=== PATIENT | male | born 1980 | race Caucasian/White ===

== ENCOUNTER 2019-06-24 10:02 | Inpatient (IN) | payer OTHER ==
--- NOTE | 2019-06-24 10:45 | RAD ---
Exam: Left femur 2 views: HISTORY: Pain following an injury while running. Displaced fracture through the base of the femoral neck with foreshortening and varus deformity. No d islocation. The remainder of the femur is intact. IMPRESSION: Displaced fracture through the base of the left femoral neck with foreshortening and varus deformity.
--- NOTE | 2019-06-24 10:46 | RAD ---
Exam: Left hip 2 views: HISTORY: Pain following injury while running FINDINGS: Displaced irregular fracture through the base of the femoral neck with foreshortening and varus defor mity. No dislocation. IMPRESSION: Displaced and foreshortened fracture of the base of the left femoral neck.
[2019-06-24] MEDS ORDERED: Ondansetron PF 4 MG/2 ML Vial ONE ×2 (11:03→12:20)
[2019-06-24] MEDS ORDERED: Morphine 4 MG/ML VIAL ONE (11:03)
[2019-06-24] MEDS ORDERED: Promethazine HCl 25 MG/ML VIAL IM PRN ×2 (11:29→18:12)
[2019-06-24] MEDS ORDERED: Morphine 4 MG/ML VIAL SLOW IVP PRN (11:29)
[2019-06-24] MEDS ORDERED: Ondansetron PF 4 MG/2 ML Vial IVP PRN (11:29)
[2019-06-24] MEDS ORDERED: hydrALAZINE 20 MG/ML VIAL SLOW IVP PRN (11:29)
[2019-06-24] MEDS ORDERED: traMADol HCl 50 MG TAB PO PRN (11:37)
[2019-06-24 11:51] LABS: #Basophils 0.1 thou/uL (0.0-0.2); #Eosinphils 0.1 thou/uL (0.0-0.7); #Lymphocytes 1.2 thou/uL (1.20-3.40); #Monocytes 0.7 thou/uL (0.11-0.59); %Basophils 0.4 % (0.0-1.0); %Eosinophils 0.8 % (0.0-10.0); %Lymphocytes 9.4 % (21.0-51.0); %Monocytes 5.2 % (0.0-10.0); %Neutrophils 84.2 % (42.0-75.0); Hemoglobin 14.7 g/dL (14.0-18.0); Mean Corpuscular HGB CONC 34.2 g/dL (32.0-36.0); Mean Corpuscular Hemoglobin 30.5 pg (27.0-31.0); Mean Corpuscular Volume 89.1 fL (78.0-98.0); Mean Platelet Volume 6.6 fL (7.4-10.4); Platelet Count 315 thou/uL (130-400); RBC Distribution Width 11.6 % (11.5-14.5); Red Blood Cell (RBC) Count 4.82 mill/uL (4.70-6.10); White Blood Cell (WBC) Count 13.1 thou/uL (4.8-10.8)
[2019-06-24 11:54] LABS: Prothrombin Time 13.6 SEC (12.0-14.7)
[2019-06-24 12:08] LABS: Magnesium 2.1 mg/dL (1.6-2.6); Phosphorus 2.8 mg/dL (2.3-4.7)
[2019-06-24 12:08] LABS: ALT (SGPT) 17 U/L (8-55); AST (SGOT) 23 U/L (5-34); Albumin 4.6 g/dL (3.5-5.0); Alkaline Phosphatase 114 U/L (40-150); Anion Gap 16 mmol/L (10-20); BUN (Urea Nitrogen) 18 mg/dL (8.9-20.6); Bilirubin, Total 0.5 mg/dL (0.2-1.2); Calc. Creatinine Clearance 0 mL/min (70-130); Calcium 10.2 mg/dL (7.8-10.44); Carbon Dioxide 24 mmol/L (22-29); Chloride 105 mmol/L (98-107); Estimated GFR-MDRD 80; Globulin 3.1 g/dL (2.4-3.5); Glucose 127 mg/dL (70-105); Potassium 4.7 mmol/L (3.5-5.1); Protein, Total 7.7 g/dL (6.0-8.3); Sodium 140 mmol/L (136-145)
[2019-06-24] MEDS ORDERED: Ketorolac Tromethamine 30 MG/ML VIAL ONE ×2 (12:12→12:20)
[2019-06-24] MEDS ORDERED: PROPOFOL 200 MG/20 ML VIAL ONE (12:20)
[2019-06-24] MEDS ORDERED: Lidocaine 1% PF 5 ML VIAL ONE (12:20)
--- NOTE | 2019-06-24 13:09 | RAD ---
CHEST 1 VIEW: Date: 06/24/19 HISTORY: Hip fracture. Preoperative exam. FINDINGS: Normal cardiac silhouette. Pulmonary vessels and hilum are normal. Costophrenic angles are clear. No masses or consolidation. There is elevation of left hemidiaphragm. No pneumothorax or osseous abnorma lities. IMPRESSION: No acute cardiopulmonary process. POS: TPC
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
[2019-06-24 14:39] VITALS: BMI 31.6
[2019-06-24] MEDS ORDERED: Fentanyl 100 MCG/2 ML VIAL ONE ×4 (15:51→19:24)
[2019-06-24] MEDS ORDERED: Midazolam HCl 2 mg/2 ml Vial ONE (15:51)
[2019-06-24] MEDS: Gabapentin 300 MG CAP PO SCH ×2 (16:01→20:14)
[2019-06-24] MEDS: Ibuprofen 800 MG TAB PO SCH ×2 (16:01→22:24)
[2019-06-24] MEDS: Sodium Chloride 0.9% 1,000 ML IV SCH ×2 (16:01→20:14)
--- NOTE | 2019-06-24 17:57 | RAD ---
INTRAOPERATIVE FLUOROSCOPY. 06/24/19 HISTORY: ORIF. Fracture. FINDINGS: There is evidence of a single screw and gamma nail traversing a left hip fracture. Alignment is near anatomic. EXPOSURE: 87.7 seconds. 8.48 mGy. IMPRESSION: Intraoperative fluoroscopy as above. POS: PPP
[2019-06-24] MEDS ORDERED: Meperidine HCl/PF 25 MG/ML VIAL ONE (18:10)
[2019-06-24] MEDS ORDERED: Meperidine HCl/PF 25 MG/ML VIAL SLOW IVP PRN (18:12)
[2019-06-24] MEDS ORDERED: Promethazine HCl 25 MG/ML VIAL SLOW IVP PRN (18:12)
[2019-06-24] MEDS ORDERED: Ondansetron HCl/PF 4 MG/2 ML Vial IVP PRN (18:12)
[2019-06-24] MEDS: Acetaminophen 1,000 MG in Premix Bag 1 BAG IVPB SCH ×2 (18:54→23:34)
[2019-06-24] MEDS: Senokot S 8.6-50 MG TAB PO SCH (20:14)
[2019-06-24] MEDS ORDERED: Enoxaparin Sodium 30 MG/0.3 ML SYRINGE SC SCH (21:00)
[2019-06-24] MEDS ORDERED: Famotidine/PF 20 mg/2ml Vial SLOW IVP SCH (21:00)
[2019-06-24] MEDS: Famotidine 20 MG TAB PO SCH (21:30)
[2019-06-24] MEDS: Cyclobenzaprine 10 MG TAB PO PRN (22:24)
--- NOTE | 2019-06-24 22:25 | PRG ---
DATE OF SERVICE: 06/24/2019 SUBJECTIVE: This is a 38-year-old gentleman, who remains on the surgical floor. The patient had a mechanical fall while jogging and sustained a left femoral neck fracture. The patient is postop day 0, status post repair of left femoral neck fracture. The patient is awake, alert, sitting up in bed. Denies any pain at this time. The patient is tolerating a diet at this time. The patient with 2 usp guards at bedside. The patient voices no complaints at this time. OBJECTIVE: VITAL SIGNS: Stable, the patient remains afebrile. RESPIRATORY: Equal chest rise and fall, no respiratory distress. EXTREMITIES: Moves all extremities. Positive distal pulses 2+, SCDs in place. IMPRESSION: 1. Status post mechanical fall while jogging. 2. Postop day #0 repair of left femoral neck fracture. PLAN: Continue supportive care and pain regimen. Increase the patient's diet as tolerated. Discontinue maintenance fluids as the patient is tolerating a diet. We will have Physical and Occupational Therapy work with the patient. The plan was discussed with the patient and guards, who agrees. Job ID: [id number]
--- NOTE | 2019-06-24 22:28 | CON ---
DATE OF CONSULTATION: 06/24/2019 REQUESTING PHYSICIAN: Edward Delgado DO CONSULTING PHYSICIAN: Junior Pena MD REASON FOR CONSULTATION: Left hip basicervical femoral neck fracture. BRIEF CLINICAL HISTORY: Vladislav is a 38-year-old white male, who was admitted to [facility] by the trauma team after he was found to have a left basicervical femoral neck fracture. Our service was consulted for management of this problem. The patient has been having pain in the left hip for the last month or so since he initiated a jogging program. He has had progressive discomfort, which got better when he took a break from jogging and running. This was a process that replaced itself on at least 2 occasions over the subsequent month and a half. However, this morning when he was running, he felt intense pain in the left hip, it gave way, he fell suggesting that the fracture occurred prior to fall. He has been admitted by the trauma team and we have been consulted for evaluation. Plain radiographs demonstrated a basicervical femoral neck fracture. PAST MEDICAL HISTORY: Negative. PAST SURGICAL HISTORY: Negative. SOCIAL HISTORY: He is incarcerated and has not used tobacco, but has in the past. PHYSICAL EXAMINATION: GENERAL: This is a well-nourished, well-developed white male, appearing his stated age, in no apparent distress or discomfort. EXTREMITIES: Visual inspection of both lower extremities demonstrates him to have a little shortening of the left lower extremity relative to the right. He is neurovascularly intact with good digital excursion and sensation in the left lower extremity. Dorsiflexion, inversion, eversion all appear to be 5/5. Little bit of rotation is appreciated, but again there is no gross deformity and he does not keep the leg flexed. IMAGING STUDIES: Two views of left hip demonstrate a basicervical varus angulated displaced femoral neck fracture. IMPRESSION: Left hip basicervical femoral neck fracture. PLAN: 1. The risks, benefits, options, alternatives, and rationale for proceeding with closed versus open reduction with internal fixation have been explained in great detail to the patient, he is ready to proceed. All questions were answered. No guarantee of outcome stated or implied. 2. Please see orders. Job ID: [id number]
[2019-06-24] MEDS: traMADol HCl 50 MG TAB PO PRN (22:30)
[2019-06-24] MEDS: CEFAZOLIN 2 GM in Premix Bag 1 BAG IVPB SCH (23:34)
[2019-06-25] MEDS ORDERED: Sodium Chloride 0.9% 500 ML IV SCH ×2 (04:15→04:30)
[2019-06-25] MEDS: traMADol HCl 50 MG TAB PO PRN (04:23)
[2019-06-25 05:37] LABS: #Eosinphils 0.2 thou/uL (0.0-0.7); #Lymphocytes 3.1 thou/uL (1.20-3.40); #Monocytes 0.8 thou/uL (0.11-0.59); #Neutrophils 4.8 thou/uL (1.40-6.50); %Basophils 0.4 % (0.0-1.0); %Eosinophils 1.9 % (0.0-10.0); %Lymphocytes 35.1 % (21.0-51.0); %Monocytes 8.8 % (0.0-10.0); %Neutrophils 53.8 % (42.0-75.0); Hemoglobin 12.1 g/dL (14.0-18.0); Mean Corpuscular HGB CONC 33.2 g/dL (32.0-36.0); Mean Corpuscular Hemoglobin 30.2 pg (27.0-31.0); Mean Corpuscular Volume 90.8 fL (78.0-98.0); Mean Platelet Volume 6.6 fL (7.4-10.4); Platelet Count 283 thou/uL (130-400); RBC Distribution Width 11.8 % (11.5-14.5); Red Blood Cell (RBC) Count 4.02 mill/uL (4.70-6.10); White Blood Cell (WBC) Count 8.8 thou/uL (4.8-10.8)
[2019-06-25] MEDS: Acetaminophen 1,000 MG in Premix Bag 1 BAG IVPB SCH (05:47)
[2019-06-25] MEDS: Ibuprofen 800 MG TAB PO SCH ×3 (05:47→21:01)
[2019-06-25 05:58] LABS: Anion Gap 9 mmol/L (10-20); BUN (Urea Nitrogen) 15 mg/dL (8.9-20.6); Calc. Creatinine Clearance 183 mL/min (70-130); Calcium 8.3 mg/dL (7.8-10.44); Carbon Dioxide 26 mmol/L (22-29); Chloride 107 mmol/L (98-107); Estimated GFR-MDRD Greater than 90; Glucose 112 mg/dL (70-105); Magnesium 1.8 mg/dL (1.6-2.6); Phosphorus 3.5 mg/dL (2.3-4.7); Potassium 3.8 mmol/L (3.5-5.1); Sodium 138 mmol/L (136-145)
[2019-06-25] MEDS ORDERED: Magnesium 2 GM/50 ML 2 GM in Premix Bag 1 BAG IVPB SCH (07:15)
[2019-06-25] MEDS ORDERED: Potassium Phosphate 15 MMOL in Sodium Chloride 0.9% 250 ML 250 ML IVPB SCH (07:15)
[2019-06-25] MEDS: CEFAZOLIN 2 GM in Premix Bag 1 BAG IVPB SCH ×2 (07:58→17:46)
[2019-06-25] MEDS: Senokot S 8.6-50 MG TAB PO SCH ×2 (08:01→20:51)
[2019-06-25] MEDS: Aspirin 81 mg Enteric Coated Tablet PO SCH ×2 (08:01→20:51)
[2019-06-25] MEDS: Gabapentin 300 MG CAP PO SCH ×3 (08:01→20:51)
[2019-06-25] MEDS: Polyethylene Glycol 3350 17 GM Packet PO SCH (08:02)
[2019-06-25] MEDS: Famotidine 20 MG TAB PO SCH ×2 (08:30→20:52)
[2019-06-25] MEDS: Acetaminophen 500 MG TAB PO SCH ×3 (08:30→20:51)
[2019-06-25] MEDS: traMADol HCl 50 MG TAB PO SCH ×3 (08:30→20:51)
[2019-06-25] MEDS ORDERED: Sodium Chloride 0.9% 1,000 ML IV SCH (09:45)
[2019-06-25] MEDS ORDERED: Hydrocortisone Sod Succ/PF 100 mg/2 ml Vial IVP SCH (09:45)
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
[2019-06-25] MEDS: Hydrocortisone Sod Succ/PF 100 mg/2 ml Vial IVP SCH ×2 (17:57→21:01)
--- NOTE | 2019-06-25 20:53 | PRG ---
DATE OF SERVICE: 06/25/2019 SUBJECTIVE: The patient remains on the surgical floor, awake, alert, lying in hospital bed. The patient is postop day #1 status post fixation of left femoral neck fracture. The patient reports that his pain is well controlled at this time. The patient states he was able to walk with Physical Therapy using a walker and 50% weightbearing on his left lower extremity. The patient continues to tolerate a diet. The patient voices no complaints at this time. The patient is with intermediate guards at bedside. OBJECTIVE: VITAL SIGNS: Blood pressure 114/72, temperature 98.2, pulse 67, respirations 16, SpO2 of 95% on room air. GENERAL: Well-appearing, middle-aged male, sitting up in bed, in no acute distress. PULMONARY: Equal chest rise and fall of chest. No respiratory distress. EXTREMITIES: A 2+ pulses in all extremities. Left hip dressing is clean, dry, and intact. NEUROLOGIC: Motor and sensation intact in all extremities. GCS is 15. ASSESSMENT: 1. Status post mechanical fall. 2. Left femoral neck fracture, status post repair. 3. Hypokalemia, hypophosphatemia, and hypomagnesemia. 4. Acute adrenal insufficiency. 5. Acute traumatic pain, secondary to left femoral neck fracture. PLAN: Continue supportive care and scheduled pain regimen. Continue hydrocortisone for adrenal insufficiency. We will continue to have Physical and Occupational work with the patient. We will continue mechanical and chemical DVT prophylaxis. The plan has been discussed with the patient and guards, who agreed. Job ID: [id number]
[2019-06-26] MEDS: traMADol HCl 50 MG TAB PO SCH ×4 (01:20→21:04)
[2019-06-26] MEDS: Acetaminophen 500 MG TAB PO SCH ×4 (01:20→21:05)
[2019-06-26] MEDS: Ibuprofen 800 MG TAB PO SCH ×3 (05:16→21:05)
[2019-06-26] MEDS: Hydrocortisone Sod Succ/PF 100 mg/2 ml Vial IVP SCH ×2 (05:16→11:47)
[2019-06-26 05:28] LABS: #Lymphocytes 2.2 thou/uL (1.20-3.40); #Monocytes 0.9 thou/uL (0.11-0.59); %Basophils 0.5 % (0.0-1.0); %Eosinophils 0.4 % (0.0-10.0); %Lymphocytes 23.7 % (21.0-51.0); %Monocytes 9.6 % (0.0-10.0); %Neutrophils 65.8 % (42.0-75.0); Anion Gap 9 mmol/L (10-20); BUN (Urea Nitrogen) 10 mg/dL (8.9-20.6); Calc. Creatinine Clearance 235 mL/min (70-130); Calcium 8.5 mg/dL (7.8-10.44); Carbon Dioxide 23 mmol/L (22-29); Chloride 110 mmol/L (98-107); Estimated GFR-MDRD Greater than 90; Glucose 96 mg/dL (70-105); Hemoglobin 11.8 g/dL (14.0-18.0); Magnesium 2.1 mg/dL (1.6-2.6); Mean Corpuscular Hemoglobin 30.4 pg (27.0-31.0); Mean Corpuscular Volume 92.2 fL (78.0-98.0); Mean Platelet Volume 6.9 fL (7.4-10.4); Phosphorus 2.7 mg/dL (2.3-4.7); Platelet Count 257 thou/uL (130-400); Potassium 4.4 mmol/L (3.5-5.1); RBC Distribution Width 11.9 % (11.5-14.5); Red Blood Cell (RBC) Count 3.88 mill/uL (4.70-6.10); Sodium 138 mmol/L (136-145); White Blood Cell (WBC) Count 9.2 thou/uL (4.8-10.8)
[2019-06-26] MEDS ORDERED: PHOS-NAK 1 PKT PACK PO SCH (07:45)
[2019-06-26] MEDS: Gabapentin 300 MG CAP PO SCH ×3 (08:15→21:05)
[2019-06-26] MEDS: Senokot S 8.6-50 MG TAB PO SCH ×2 (08:16→21:05)
[2019-06-26] MEDS: Famotidine 20 MG TAB PO SCH ×2 (08:17→21:05)
[2019-06-26] MEDS: Aspirin 81 mg Enteric Coated Tablet PO SCH ×2 (08:17→21:05)
[2019-06-26] MEDS: Polyethylene Glycol 3350 17 GM Packet PO SCH (08:21)
[2019-06-26] MEDS ORDERED: Polyethylene Glycol 3350 17 GM Packet PO SCH (09:00)
--- NOTE | 2019-06-26 14:15 | PRG ---
DATE OF SERVICE: 06/26/2019 SUBJECTIVE: The patient was seen this morning. He is postoperative day 2 after fixation of the left femoral neck fracture. The patient had episodes of hypotension yesterday, which was due to dehydration and acute adrenal insufficiency. Over the past 24 hours, he has been hemodynamically stable. He has worked with Physical and Occupational Therapy. He is tolerating a regular diet and pain is well controlled. OBJECTIVE: VITAL SIGNS: Temperature 98.2, pulse 64, respirations 14, oxygen saturation 96% on room air, blood pressure 117/73. GENERAL: Middle-aged male, sitting up in bed with no signs of acute distress. PULMONARY: Equal chest rise and fall. Clear breath sounds bilaterally. No signs of acute respiratory distress. CARDIAC: Regular rate and rate rhythm. No murmurs, gallops, or rubs. GI: Abdomen is soft, nontender, nondistended. EXTREMITIES: 2+ pulses in all extremities. No significant swelling noted. Gross motor and sensation are intact. Left lower extremity is 50% weightbearing as recommended by Orthopedic Surgery. LABORATORY FINDINGS: White count 9.2, hemoglobin 11.8, hematocrit 35.8, platelets 257. INR 1.0. Sodium 138, potassium 4.4, chloride 101, carbon dioxide 23, BUN 10, creatinine 0.67, glucose 96, phosphorus 2.7 magnesium 2.1. Cortisol level completed yesterday was 10.1. DIAGNOSTIC FINDINGS: There are no new diagnostic findings to report. ASSESSMENT: 1. Status post mechanical fall. 2. Left femoral neck fracture, status post repair. 3. Acute adrenal insufficiency, improved. 4. Acute hypophosphatemia. PLAN: The patient will continue to work with Physical and Occupational Therapy. Hydrocortisone was changed to p.o. regimen and a 1-week long taper was initiated. He will be discharged with these medications as well. He will continue to work with Physical and Occupational Therapy. Case Management has been updated and the patient is ready for discharge at this time. He will need to go to a facility that can accommodate his partial weightbearing status as he is a prisoner and it is not appropriate for him to go to general population yet. We will replace his phosphorus p.o. Continue aspirin for DVT prophylaxis. Job ID: [id number]
[2019-06-26] MEDS: Hydrocortisone 10 mg Tablet PO SCH ×2 (14:26→21:04)
[2019-06-26] MEDS: Cyclobenzaprine 10 MG TAB PO PRN (14:37)
--- NOTE | 2019-06-26 22:19 | PRG ---
DATE OF SERVICE: 06/26/2019 SUBJECTIVE: The patient remains on the surgical floor, the patient awake, alert, in no distress, sitting up in hospital bed. The patient is postop day #2, status post fixation of left femoral neck fracture. The patient reports mild increased pain to the left hip as he did more with Physical Therapy today. The patient continues to tolerate a regular diet. The patient voices no other complaints at this time. The patient has 2 alf guards at bedside. The patient does report having a bowel movement today. OBJECTIVE: VITAL SIGNS: Stable. The patient remains afebrile. GENERAL: Well-appearing, middle aged male, sitting up in hospital bed, incarcerated, in no acute distress. PULMONARY: Equal chest rise and fall of chest, no respiratory distress. EXTREMITIES: 2+ pulses in all extremities. Left hip dressing clean, dry, and intact. NEUROLOGIC: GCS 15. Motor and sensation intact in all extremities. ASSESSMENT: 1. Status post mechanical fall. 2. Left femoral neck fracture postop day #2. 3. Hypokalemia. 4. Hypophosphatemia. 5. Hypomagnesemia. 6. Acute adrenal insufficiency, improving. 7. Acute traumatic pain, secondary to left femoral neck fracture. PLAN: Continue supportive care and pain regimen. Continue to have Physical and Occupational work with the patient. We will continue mechanical and chemical DVT prophylaxis. The plan has been discussed with the patient and guards, who agreed. Job ID: [id number]
[2019-06-27] MEDS: Acetaminophen 500 MG TAB PO SCH ×4 (02:04→20:22)
[2019-06-27] MEDS: Hydrocortisone 10 mg Tablet PO SCH ×2 (02:05→14:18)
[2019-06-27] MEDS: traMADol HCl 50 MG TAB PO SCH ×4 (02:05→20:23)
[2019-06-27] MEDS: Ibuprofen 800 MG TAB PO SCH ×3 (05:35→21:55)
[2019-06-27] MEDS: Famotidine 20 MG TAB PO SCH ×2 (08:20→20:22)
[2019-06-27] MEDS: Senokot S 8.6-50 MG TAB PO SCH ×2 (08:20→20:23)
[2019-06-27] MEDS: Aspirin 81 mg Enteric Coated Tablet PO SCH ×2 (08:20→20:22)
[2019-06-27] MEDS: Gabapentin 300 MG CAP PO SCH (08:20)
[2019-06-27] MEDS: Polyethylene Glycol 3350 17 GM Packet PO SCH (08:21)
--- NOTE | 2019-06-27 11:27 | PRG ---
DATE OF SERVICE: 06/27/2019 SUBJECTIVE: The patient was seen this morning, ambulating in the hallway and then later lying in bed. He reported his pain is well controlled and he has increased pain after ambulating, but that the pain medications are working well. He reports feeling unusual after taking gabapentin. We did discuss decreasing the frequency in the dosage and he was in agreeance with that. He is voiding and having bowel movements. There are no further episodes of hypotension. He is tolerating a regular diet. OBJECTIVE: VITAL SIGNS: Temperature 97.5, pulse 67, respirations 18, oxygen saturation 96% on room air, and blood pressure 131/82. GENERAL: Well-appearing young male, lying in bed with no signs of acute distress. PULMONARY: Equal chest rise and fall. Clear breath sounds bilaterally. No signs of acute distress. CARDIAC: Regular rate and rhythm. No murmurs, gallops, or rubs. GI: Abdomen is soft, nontender, nondistended. EXTREMITIES: 2+ pulses in all extremities. Gross motor and sensation are intact. No signs of significant swelling. NEUROLOGIC: GCS is 15. LABORATORY FINDINGS: There are no new laboratory findings to discuss. DIAGNOSTIC FINDINGS: There are no new diagnostic findings to discuss. ASSESSMENT: 1. Status post mechanical fall. 2. Left femoral neck fracture, status post repair. 3. Acute adrenal insufficiency, stable. PLAN: We will continue the current diet. We will decrease gabapentin to 200 mg b.i.d. Continue physical and occupational therapy. He is pending placement at this time. The patient is ready for discharge at this time. Job ID: [id number]
[2019-06-27] MEDS: Gabapentin 100 MG CAP PO SCH (20:23)
--- NOTE | 2019-06-27 22:15 | PRG ---
DATE OF SERVICE: 06/27/2019 SUBJECTIVE: The patient remains on the surgical floor. The patient is awake, alert, in no distress, sitting up in bed. The patient states that he was able to ambulate well with physical therapy. The patient's pain is well controlled at this time. The patient continues to tolerate a regular diet. The patient continues to have good urinary output and having bowel movements. OBJECTIVE: VITAL SIGNS: Stable, the patient remains afebrile. GENERAL: Well-appearing young male, lying in bed with no acute distress, the patient is incarcerated. PULMONARY: Equal chest rise and fall, no respiratory distress. EXTREMITIES: 2+ pulses in all extremities. Gross motor and sensation intact. Left hip dressing clean, dry, and intact. ASSESSMENT: 1. Status post mechanical fall. 2. Left femoral neck fracture, postop day 3. 3. Acute adrenal insufficiency, stable. PLAN: Continue current diet and supportive care. Continue current pain regimen. Continue physical and occupational therapy. The patient is pending placement for continued physical and occupational therapy. Job ID: [id number]
[2019-06-28] MEDS: traMADol HCl 50 MG TAB PO SCH ×4 (03:11→20:44)
[2019-06-28] MEDS: Hydrocortisone 10 mg Tablet PO SCH ×2 (03:11→13:06)
[2019-06-28] MEDS: Acetaminophen 500 MG TAB PO SCH ×4 (03:11→20:44)
[2019-06-28] MEDS: Ibuprofen 800 MG TAB PO SCH ×3 (06:34→21:02)
[2019-06-28] MEDS: Gabapentin 100 MG CAP PO SCH ×2 (08:00→20:46)
[2019-06-28] MEDS: Senokot S 8.6-50 MG TAB PO SCH ×2 (08:00→20:46)
[2019-06-28] MEDS: Aspirin 81 mg Enteric Coated Tablet PO SCH ×2 (08:00→20:46)
[2019-06-28] MEDS: Famotidine 20 MG TAB PO SCH ×2 (08:00→20:46)
[2019-06-28] MEDS: Polyethylene Glycol 3350 17 GM Packet PO SCH (08:02)
--- NOTE | 2019-06-28 10:46 | PRG ---
DATE OF SERVICE: 06/28/2019 SUBJECTIVE: The patient was seen this morning sitting up in bed with no signs of acute distress. He reported he slept well overnight. Pain is well controlled. He is tolerating regular diet, voiding and having bowel movements without difficulties. He had no complaints at the time of my evaluation. OBJECTIVE: VITAL SIGNS: Temperature 97.7, pulse 58, respirations 16, oxygen saturation 97% on room air, and blood pressure 115/79. GENERAL: Well-appearing young male, sitting up in bed with no signs of acute distress. PULMONARY: Equal chest rise and fall. Clear breath sounds bilaterally. No signs of acute respiratory distress. CARDIAC: Regular rate and rhythm. No murmurs, gallops, or rubs. GI: Abdomen is soft, nontender, and nondistended. EXTREMITIES: 2+ pulses in all extremities. No significant swelling noted. Gross motor and sensation are intact. Surgical dressing is clean, dry, and intact. NEUROLOGIC: GCS is 15. LABORATORY DATA: There are no new laboratory findings to discuss. DIAGNOSTIC FINDINGS: There are no new diagnostic findings to discuss. ASSESSMENT: 1. Status post mechanical fall. 2. Left femoral neck fracture, status post repair. 3. Acute adrenal insufficiency, improved. PLAN: The patient will continue working with Physical and Occupational Therapy. Continue current diet and pain regimen. Continue hydrocortisone taper for acute adrenal insufficiency. The patient is ready for discharge at this time and is [facility] as he is not ready to go back to general population. Job ID: [id number]
--- NOTE | 2019-06-28 23:45 | PRG ---
DATE OF SERVICE: 06/28/2019 SUBJECTIVE: Patient remains on the surgical floor. The patient is awake, alert, in no distress, sitting up in hospital bed. The patient continues to work well with physical therapy. The patient voices no complaints or concerns at this time. OBJECTIVE: VITAL SIGNS: Stable, afebrile. GENERAL: Well-appearing young male, lying in hospital bed, in no acute distress, patient is incarcerated. PULMONARY: Equal chest rise and fall of chest, no respiratory distress. EXTREMITIES: Moves all extremities, gross motor and sensation intact. Left hip dressing clean, dry, and intact. ASSESSMENT: 1. Status post mechanical fall. 2. Left femoral neck fracture, postop day #4. 3. Acute adrenal insufficiency, stable. PLAN: Continue current diet and supportive care. Continue physical and occupational therapy. The patient is pending placement for continued physical and occupational therapy. The plan has been discussed with the patient and the guards who agree. Job ID: [id number]
[2019-06-29] MEDS: traMADol HCl 50 MG TAB PO SCH ×3 (02:05→13:04)
[2019-06-29] MEDS: Acetaminophen 500 MG TAB PO SCH ×3 (02:06→13:04)
[2019-06-29] MEDS: Hydrocortisone 10 mg Tablet PO SCH ×2 (02:07→13:04)
[2019-06-29] MEDS: Ibuprofen 800 MG TAB PO SCH ×2 (06:27→13:03)
--- NOTE | 2019-06-29 06:49 | OP ---
DATE OF PROCEDURE: 06/24/2019 PREOPERATIVE DIAGNOSIS: Left basal neck proximal femur fracture. POSTOPERATIVE DIAGNOSIS: Left basal neck proximal femur fracture. PROCEDURE PERFORMED: Open reduction and internal fixation of left femoral neck fracture. ANESTHESIA: General. SENIOR SOFTWARE QA ENGINEER: Elkin Gonzalez PA-C. IMPLANTS: Synthes DHS 135-degree 3-hole sideplate with hip screw in addition to a 6.5 mm cannulated screw for a derotation device. COMPLICATIONS: None. DRAINS: None. SPECIMEN: None. OUTCOME: Near-anatomic alignment. INDICATIONS FOR PROCEDURE: The patient is a 38-year-old incarcerated male, who has been doing quite a bit of running and began to develop some mild left groin pain that predated this fracture. On 06/24, the patient had a sudden severe left groin pain and inability to ambulate. Upon arrival in the emergency room, x-rays demonstrated a base of femoral neck fracture with displacement. As such, the patient is now taken to the operating room for open reduction and internal fixation. Informed consent has been obtained. I believe all questions answered. DESCRIPTION OF PROCEDURE: The patient was brought to the operating room and a time-out performed followed by induction of general anesthesia. Next, the patient was positioned on the fracture table with the injured extremity held in longitudinal traction and slight internal rotation with AP and lateral C-arm imaging demonstrating reduction of the fracture. Next, a sterile prep and drape was performed of the left lateral thigh. A small incision was made distal to the greater trochanter. After skin was sharply incised, dissection was carried down to the underlying fascia nohelia. This was incised in line with the skin incision revealing the underlying fascia of the vastus lateralis. This fascia was also incised in line with the skin incision and then the muscle belly reflected off the posterior leaflet of the fascia, reflecting it anteriorly gaining access to the lateral cortex of the femur. Next, a 135-degree jig was used to place a threaded guidewire up the femoral neck into the femoral head, slightly lower than would be normally used; however, this was secondary to the felt need for a derotation device given the configuration of the fracture. Once the first pin was placed, a second pin from the 6.5 mm cannulated screw set was placed using freehand technique superior to the first. Once acceptable pin placement was achieved, drilling of the lateral cortex of the second pin was performed and then a 6.5 mm screw was passed over this guidewire, getting excellent compression at the superior portion of the femoral neck fracture. Next, measurement was taken off the inferior pin and the step reamer was passed over this guidewire reaming the femoral neck and head to prepare it for hip screw placement. This was then tapped as well. Next, the 135-degree DHS sideplate with its hip screw was inserted in standard fashion. Once fully delivered up the femoral neck into the femoral head, the plate was then fixed with three 4.5 mm screws in the proximal femur. The compression screw device was then inserted and compression was achieved at the inferior neck. At the completion of this, the pins were removed and then AP and lateral C-arm images were obtained that showed acceptable alignment of the fracture. The wound was then irrigated with bulb syringe and closed in layers with 0 Vicryl for the fascial closure, 2-0 Vicryl subcutaneously, and then jessica for the skin. Xeroform gauze and tape dressing was applied to the thigh and then the patient was transferred to recovery room in stable condition. There were no complications. He tolerated the procedure well. Job ID: [id number]
[2019-06-29] MEDS: Aspirin 81 mg Enteric Coated Tablet PO SCH (09:05)
[2019-06-29] MEDS: Polyethylene Glycol 3350 17 GM Packet PO SCH (09:05)
[2019-06-29] MEDS: Famotidine 20 MG TAB PO SCH (09:05)
[2019-06-29] MEDS: Gabapentin 100 MG CAP PO SCH (09:05)
[2019-06-29] MEDS: Senokot S 8.6-50 MG TAB PO SCH (09:05)
[2019-06-29 11:40] VITALS: BP 153/98; TEMP 98.2
--- NOTE | 2019-06-29 15:58 | DIS ---
DATE OF ADMISSION: 06/24/2019 DATE OF DISCHARGE: 06/29/2019 ADMISSION DIAGNOSES: Mechanical fall, left femoral neck fracture, acute adrenal insufficiency. DISCHARGE DIAGNOSES: Mechanical fall, left femoral neck fracture, acute adrenal insufficiency. CONSULTING PHYSICIAN: Dr. Pena. PROCEDURES: The patient went to the OR on June 24, 2019, and had an ORIF of the left femoral neck fracture. HOSPITAL COURSE: The patient is a 38-year-old male, who reports to the emergency department after a mechanical fall with a left femoral neck fracture. The patient is a prisoner. He went to the OR with Dr. Pena on the day of admission for fixation of his left femoral neck fracture. Postoperatively, he had a two episodes of hypotension, which were minimally responsive to IV fluids. He was started on hydrocortisone for acute adrenal insufficiency, and thereafter, he had no additional hypotension. The patient worked with Physical and Occupational Therapy, and he was discharged to a halfway rehab in [place]. He was 50% weightbearing on the left lower extremity with a walker. DISCHARGE DISPOSITION: Rehab through his halfway. DISCHARGE CONDITION: Satisfactory. PHYSICAL EXAMINATION: VITAL SIGNS: Temperature 98.2, pulse 60, respirations 16, oxygen saturation 95% on room air, and blood pressure 153/98. GENERAL: Well-appearing young male, sitting up in bed with no signs of acute distress. PULMONARY: Equal chest rise and fall, clear breath sounds bilaterally. No signs of acute respiratory distress. CARDIAC: Regular rate and rhythm. No murmurs, gallops, or rubs. GASTROINTESTINAL: Abdomen is soft, nontender, nondistended. EXTREMITIES: 2+ pulses in all extremities. No significant swelling noted. Gross motor and sensation are intact. NEUROLOGIC: GCS is 15. DISCHARGE INSTRUCTIONS: The patient was discharged to intermediate with activity as tolerated, 50% weightbearing on left upper extremity with a regular diet, physical therapy, incentive spirometry, and a walker. The patient is to continue his hydrocortisone taper over the next four days. DISCHARGE MEDICATIONS: Included; 1. Tylenol. 2. Aspirin. 3. Flexeril. 4. Gabapentin. 5. Hydrocortisone. 6. Ibuprofen. 7. MiraLAX. 8. Senokot-S. 9. Tramadol. FOLLOWUP APPOINTMENTS: The patient is to follow up with Dr. Pena in 2 weeks. There is no need for followup with Trauma Surgery. This is merely a summary of the patient's hospitalization. For full details, please see his medical record in its entirety. Job ID: [id number]
[2019-07-01] MEDS ORDERED: Hydrocortisone 10 mg Tablet PO SCH (09:00)
== END 2019-06-29 13:10 | DRG 481 ==
LOC: EEVIPCON 10:02 → ERS 10:02 → SURG A 11:29
PROVIDERS: ADMIT Surgery; ATTEND Surgery
PROC: 0QS704Z Reposition Left Upper Femur with Internal Fixation Device, Open Approach (ICD-10-PCS; principal; 2019-06-24)
DX: S72.042A Displaced fracture of base of neck of left femur, initial encounter for closed fracture (principal); E27.40 Unspecified adrenocortical insufficiency; E87.6 Hypokalemia; E83.42 Hypomagnesemia; E83.39 Other disorders of phosphorus metabolism; Y93.02 Activity, running; W18.30XA Fall on same level, unspecified, initial encounter
CPT/HCPCS: 36415; 71045; 76000; 80048; 80053; 82533; 83735; 84100; 85025; 85610; 86850; 86900; 86901; 96361; 96374; 96375; C1713; C1769; G0390; J0131; J0690; J1650; J1720; J1885; J2001; J2175; J2250; J2270; J2405; J2704; J3010; J3475; J7050; S0028